=== PATIENT | male | born 1980 | race Caucasian/White ===

== ENCOUNTER 2018-10-13 23:07 | Emergency (ER) | payer OTHER, SELFPAY ==
[2018-10-13 23:15] VITALS: BP 167/112; PULSE 68; RESP 15; TEMP 36.9; O2SAT 100; BMI 40.3
--- NOTE | 2018-10-13 23:33 | ED_ITS ---
HPI - Abdominal Pain General Chief Complaint: Abdominal Pain Stated Complaint: pain in left side front abdomen Time Seen by Provider: 10/13/18 23:18 Source: patient Mode of arrival: ambulatory Limitations: no limitations History of Present Illness HPI narrative: 38-year-old male, nonsmoker with a history of kidney stones presents with sudden onset left flank pain that wraps around his left side. His symptoms started about 1-2 hours ago. He states there is sudden in onset are incredibly sharp and stabbing. He denies provocation or palliation and cannot find a position of comfort. This vaguely reminds him of a kidney stone he had 15 years ago. He had 1 episode of vomiting thought due to intense pain. He has had no fever or chills. He denies dysuria, frequency or urgency. MD complaint: flank pain Onset (ago): hour(s) Pain Consistency: now resolved Location: L flank Quality: stabbing Radiation: L flank Migration to: no migration Relieving factors: nothing Exacerbating factors: nothing Associated symptoms: nausea and vomiting Related Data Previous Rx's Medication Instructions Recorded hydrocodone-acetaminophen 1 tab PO Q4-6H PRN #10 tab 10/14/18 ketorolac 10 mg PO Q6H PRN #14 tab 10/14/18 ondansetron 4 mg PO TID-QID PRN #10 tab 10/14/18 tamsulosin [Flomax] 0.4 mg PO DAILY #10 cap 10/14/18 Allergies Allergy/AdvReac Type Severity Reaction Status Date / Time No Known Drug Allergies Allergy Verified 10/13/18 23:19 Review of Systems Constitutional Denies chills, Denies fever(s), Denies lethargy and Denies weakness Eyes Denies change in vision, Denies eye discharge, Denies irritation and Denies loss of vision ENT Ears, Nose, Mouth, and Throat: Denies change in voice, Denies neck pain and Denies sore throat Cardiovascular Denies chest pain, Denies irregular heart rhythm, Denies lightheadedness, Denies palpitations, Denies dyspnea, Denies dyspnea on exertion and Denies orthopnea Respiratory Denies cough, Denies dyspnea, Denies dyspnea on exertion and Denies wheezing Gastrointestinal Gastrointestinal: Denies abdominal pain, Denies change in bowel habits, Denies diarrhea, Denies nausea and Denies vomiting Genitourinary Denies hematuria, Reports flank pain, Denies urinary incontinence and Denies urinary urgency Musculoskeletal Denies neck pain Integumentary/Breasts Denies pruritus, Denies erythema, Denies rash and Denies wounds Neurologic Denies confusion, Denies loss of vision and Denies weakness Psychiatric Denies anxiety, Denies confusion, Denies depression, Denies homicidal ideation and Denies suicidal ideation Endocrine Denies palpitations Hematologic/Lymphatic Denies easy bruising Allergic/Immunologic Denies wheezing Exam Narrative Exam Narrative: GENERAL: 38-year-old male overweight, resting comfortably, in good spirits and in distress HEAD: Atraumatic. Normocephalic. No temporal or scalp tenderness. EYES: Pupils equal round and reactive. Extraocular motions intact. No scleral icterus. No injection or drainage. ENT: Nose without bleeding, purulent drainage or septal hematoma. Throat without erythema, tonsillar hypertrophy or exudate. Uvula midline. Airway patent. NECK: Trachea midline. No JVD or lymphadenopathy. Supple, nontender, no meningeal signs. CARDIOVASCULAR: Regular rate and rhythm without murmurs, gallops, or rubs. RESPIRATORY: Clear to auscultation. Breath sounds equal bilaterally. No wheezes , rales, or rhonchi. GASTROINTESTINAL: Abdomen soft, non-tender, nondistended. No hepato-splenomegaly , or palpable masses. No guarding. EXTREMITIES: No clubbing, cyanosis, or edema. No joint tenderness, effusion, or edema noted. BACK: Nontender without deformity or crepitance. No flank tenderness. NEURO: AOx3. SKIN: No rash or erythema. Initial Vital Signs Initial Vital Signs: Vital Signs Temperature 98.5 F 10/13/18 23:15 Pulse Rate 68 10/13/18 23:15 Respiratory Rate 15 10/13/18 23:15 Blood Pressure 167/112 H 10/13/18 23:15 Pulse Oximetry 100 10/13/18 23:15 Course Orders Ordered: ED Orders 10/13/18 23:35 Basic Metabolic Panel Stat Complete Blood Count AUTO DIFF Stat Discontinued Medications Sodium Chloride (Normal Saline 0.9%) 1,000 mls @ 1,000 mls/hr IV BOLUS ONE Stop: 10/14/18 00:27 Last Infusion: 10/14/18 01:41 Dose: 0 mls/hr Admin: 10/13/18 23:44 Dose: 1,000 mls/hr Ketorolac Tromethamine (Toradol) 15 mg IV NOW ONE Stop: 10/13/18 23:29 Last Admin: 10/13/18 23:44 Dose: 15 mg Ondansetron HCl (Zofran) 4 mg IV NOW ONE Stop: 10/13/18 23:29 Last Admin: 10/13/18 23:44 Dose: 4 mg Vital Signs - 8 hr 10/13/18 23:15 Temperature 98.5 F Pulse Rate 68 Respiratory Rate 15 Blood Pressure 167/112 H Pulse Oximetry 100 MDM - Abdominal Pain Lab Data Result diagrams: 10/13/18 23:35 10/13/18 23:35 Lab Results 10/13/18 10/13/18 Range/Units 23:35 23:35 WBC 9.7 (4.5-11.0) X10^3/uL RBC 5.27 (4.5-5.9) X10^6/uL Hgb 16.0 (13.5-17.5) g/dL Hct 47.7 (41-53) % MCV 90.6 (80-100) fL MCH 30.5 (26-34) PG MCHC 33.6 (30-36) % RDW 13.3 (11.6-14.8) % Plt Count 206 (150-400) X10^3/uL Neut % (Auto) 38.3 L (50-75) % Lymph % (Auto) 44.8 H (25-40) % Eddy % (Auto) 12.8 (3-14) % Eos % (Auto) 3.1 (2-4) % Baso % (Auto) 1.0 (0-2) % Neut # (Auto) 3700 (3352-9778) /uL Lymph # (Auto) 4300 (0771-5110) /uL Eddy # (Auto) 1200 H (0-900) /uL Eos # (Auto) 300 (0-450) /uL Baso # (Auto) 100 (0-100) /uL Sodium 142 (137-145) mmol/L Potassium 3.7 (3.4-5.1) mmol/L Chloride 102 (98-107) mmol/L Carbon Dioxide 25 (22-32) mmol/L BUN 18 (9-20) mg/dL Creatinine 1.10 (0.66-1.25) mg/dL Estimated GFR > 60.0 (>60) mL/min BUN/Creatinine Ratio 16.4 (6-22) Glucose 88 (70-100) mg/dL Calcium 9.2 (8.4-10.2) mg/dL Point of care testing: Urine Dip Bedside Urine Glucose Negative Bedside Urine Bilirubin - Negative Bedside Urine Ketone + 15 Urine Specific [place] 1.030 Bedside Urine Occult Blood ++ Bedside Urine pH 5.5 Bedside Urine Protein - Negative Bedside Urine Urobilinogen 1+ 2mg Bedside Urine Nitrite - Negative Bedside Urine Leukocytes - Negative Esterase MDM Narrative Medical decision making narrative: Multiple etiologies for patient's symptoms considered including: [Kidney stone, pyelonephritis, musculoskeletal injury, retroperitoneal hematoma, bowel obstruction, constipation, gas pain, versus other] Patient's symptoms improved or duration of stay with above-stated therapies. We did discuss whether not imaging would change the outcome and disposition and elect to hold CT scan or ultrasound until subsequent visits Findings and discharge diagnosis discussed with patient/family followed by verbalization of understanding Return precautions discussed with patient/family whom verbalize understanding. Discharge Plan Departure Patient Disposition: Home Clinical Impression: Kidney stone on left side Instructions: DI for Kidney Stones Activity Restrictions/Additional Instructions: *You have been diagnosed with [ left-sided ureterolithiasis ] *What to do: *Take medications as directed *Follow up with your primary care provider in 2-3 days, call for an appointment. Let them know you were seen in the Emergency Department and that we ask that you be seen in follow up *Return to ER if you should have any new, worsening or concerning symptoms , such as [increasing pain, persistent vomiting, fever over 101 F, shaking chills, other bothersome symptoms ] Prescriptions: New hydrocodone-acetaminophen 5-325 mg tablet 1 tab PO Q4-6H PRN (Reason: pain) Qty: 10 RF: 0 ketorolac 10 mg tablet 10 mg PO Q6H PRN (Reason: pain) Qty: 14 RF: 0 tamsulosin [Flomax] 0.4 mg capsule 0.4 mg PO DAILY Qty: 10 RF: 0 ondansetron 4 mg tablet,disintegrating 4 mg PO TID-QID PRN (Reason: nausea and vomiting) Qty: 10 RF: 0 Referrals: Kip Monroe MD [Non-Staff] -
[2018-10-13 23:44] LABS: Add Manual Diff / Slide Review NO; Basophils Absolute Auto 100 /uL (0-100); Eosinophils Absolute Auto 300 /uL (0-450); Eosinophils Percent Auto 3.1 % (2-4); Hematocrit 47.7 % (41-53); Lymphocytes Absolute Auto 4300 /uL (1100-4500); Lymphocytes Percent Auto 44.8 % (25-40); Mean Corpuscular HGB Conc 33.6 % (30-36); Mean Corpuscular Hemoglobin 30.5 PG (26-34); Mean Corpuscular Volume 90.6 fL (80-100); Monocytes Absolute Auto 1200 /uL (0-900); Monocytes Percent Auto 12.8 % (3-14); Neutrophils Absolute Auto 3700 /uL (1500-7000); Neutrophils Percent Auto 38.3 % (50-75); Platelet Count 206 X10^3/uL (150-400); Red Blood Cell Count 5.27 X10^6/uL (4.5-5.9); Red Cell Distribution Width 13.3 % (11.6-14.8); White Blood Cell Count 9.7 X10^3/uL (4.5-11.0)
[2018-10-13] MEDS: KETOROLAC 30 MG/ML VIAL 15 MG IV (23:44)
[2018-10-13] MEDS: SODIUM CHLORIDE 0.9% 1,000 ML 1000 ML IV (23:44)
[2018-10-13] MEDS: ONDANSETRON 4 MG/2 ML INJ IV (23:44)
[2018-10-13 23:53] LABS: BUN Creatinine Ratio 16.4 (6-22); Blood Urea Nitrogen 18 mg/dL (9-20); Calcium 9.2 mg/dL (8.4-10.2); Carbon Dioxide 25 mmol/L (22-32); Chloride 102 mmol/L (98-107); Estimated Glomerular Filt Rate > 60.0 mL/min (>60); Glucose 88 mg/dL (70-100); HEMOLYSIS < 15 (0-50); Potassium 3.7 mmol/L (3.4-5.1); Sodium 142 mmol/L (137-145)
[2018-10-14 01:53] VITALS: BP 151/99; PULSE 80; RESP 18
== END 2018-10-14 01:45 | disposition home or self-care (01) ==
PROVIDERS: Emergency Provider Emergency Medicine
DX: N20.0 Calculus of kidney (principal)
CPT/HCPCS: 36591; 80048; 81003; 85025; 96361; 96374; 96375; 99283; 99284; J1885; J2405

== ENCOUNTER → 2018-12-04 17:22 | Outpatient (CLI) | payer OTHER, SELFPAY ==
--- NOTE | 2018-12-04 17:23 | DI.RAD.S_ITS ---
PROCEDURE: XR CHEST 2V INDICATIONS: cough and shortness of breath TECHNIQUE: 2 views of the chest were acquired. COMPARISON: None. FINDINGS: Surgical changes and devices: None. Lungs and pleura: Lungs are clear. No pleural effusions or pneumothorax. Mediastinum: Mediastinal contours are normal. Heart size is normal. Bones and chest wall: No suspicious bony abnormalities. Soft tissues appear unremarkable. IMPRESSION: No acute cardiopulmonary disease. Dictated by: Nidia Rios M.D. on 12/04/2018 at 18:19 Approved by: Nidia Rios M.D. on 12/04/2018 at 18:19
== END ==
PROVIDERS: Visit Provider Physician Assistant
DX: R05 Cough (principal); R06.02 Shortness of breath
CPT/HCPCS: 71046

== ENCOUNTER → 2019-01-11 09:41 | Outpatient (CLI) | payer OTHER, SELFPAY ==
--- NOTE | 2019-01-11 09:43 | DI.US.S_ITS ---
PROCEDURE: US RENAL COMPLETE INDICATIONS: HISTORY KIDNEY STONES TECHNIQUE: Real-time scanning was performed of the kidneys and bladder, with image documentation. COMPARISON: [facility], CT, CT KUB, 01/06/2019, 20:29. FINDINGS: Kidneys: Kidneys are normal in size. Right kidney measures 11.0 cm long; left kidney measures 13.3 cm long. Right renal cortical thickness is 2.6 cm; left renal cortical thickness is 2.2 cm. Renal cortical echotexture is normal. There is a 5.3 mm stone in the right kidney. No left renal stone. There is mild left hydronephrosis. No suspicious solid mass lesions. Bladder: Pre-void bladder volume is 96 mL. Post-void residual is 0 mL. Pre-void images demonstrate no intraluminal masses or stones. On pre-void images, the right ureteral jet is noted with color Doppler interrogation. The left ureter jet is not visualized. (Of note, ureteral jets may not be detectable in up to 25% of cases due to insufficient differences in specific gravity between ureteral and bladder urine). Miscellaneous: No free pelvic fluid. IMPRESSION: 1. Mild left hydronephrosis. No left renal stones are identified on ultrasound. 2. A 5.3 mm stone in the right kidney. No right hydronephrosis. Dictated by: Nidia Rios M.D. on 01/11/2019 at 12:26 Approved by: Nidia Rios M.D. on 01/11/2019 at 12:30
== END ==
PROVIDERS: PCP Nurse Practitioner; Visit Provider Nurse Practitioner
DX: N20.0 Calculus of kidney (principal); N13.30 Unspecified hydronephrosis; Z87.442 Personal history of urinary calculi
CPT/HCPCS: 76770

== ENCOUNTER → 2019-03-18 17:53 | Outpatient (CLI) | payer OTHER, SELFPAY ==
[2019-03-18 19:08] LABS: Cholesterol 236 mg/dL (140-199); HDL Cholesterol 38 mg/dL (40-60); Triglycerides 479 mg/dL (35-150)
[2019-03-18 19:40] LABS: TSH w/ Reflex to FT4 2.02 uIU/mL (0.47-4.68); Uric Acid 8.6 mg/dL (3.5-8.5)
[2019-03-22 14:16] LABS: Parathyroid Hormone Int 39 pg/mL (14-64)
== END ==
PROVIDERS: PCP Nurse Practitioner; Visit Provider Specialist
DX: Z00.00 Encounter for general adult medical examination without abnormal findings (principal)
CPT/HCPCS: 36415; 80061; 82310; 83970; 84443; 84550

== ENCOUNTER → 2019-03-22 11:36 | Outpatient (CLI) | payer OTHER, SELFPAY ==
--- NOTE | 2019-03-22 | DI.RAD.S_ITS ---
PROCEDURE: XR KUB INDICATIONS: CALCULUS OF KIDNEY TECHNIQUE: One view of the abdomen acquired. COMPARISON: None. FINDINGS: Surgical changes and devices: None. Bowel: Bowel gas pattern is normal. Soft tissues: No suspicious abdominal calcifications. Visualized solid organ contours appear normal in size. Bones: No suspicious bony lesions. IMPRESSION: No discrete renal or ureteral calcification is seen. Dictated by: Magdy Osuna M.D. on 03/22/2019 at 13:23 Approved by: Magdy Osuna M.D. on 03/22/2019 at 13:24
== END ==
PROVIDERS: PCP Nurse Practitioner; Visit Provider Specialist
DX: N20.0 Calculus of kidney (principal)
CPT/HCPCS: 74018

== ENCOUNTER → 2019-05-25 21:20 | Outpatient (CLI) | payer OTHER, SELFPAY ==
--- NOTE | 2019-05-25 21:23 | DI.RAD.S_ITS ---
PROCEDURE: XR KUB INDICATIONS: KIDNEY STONES TECHNIQUE: One view of the abdomen acquired. COMPARISON: [facility], CT, CT KUB, 01/06/2019, 20:29. [facility], CR, XR KUB, 03/22/2019, 11:47. FINDINGS: Surgical changes and devices: None. Bowel: Bowel gas pattern is normal. Soft tissues: No suspicious abdominal calcifications. Visualized solid organ contours appear normal in size. Bones: No suspicious bony lesions. IMPRESSION: No radiographically apparent urolithiasis. The findings from CT dated 01/06/19 not seen on the current study. Dictated by: Liam Styles M.D. on 05/26/2019 at 9:17 Approved by: Liam Styles M.D. on 05/26/2019 at 9:18
== END ==
PROVIDERS: PCP Nurse Practitioner; Visit Provider Specialist
DX: N20.0 Calculus of kidney (principal)
CPT/HCPCS: 74018

== ENCOUNTER → 2019-06-29 09:17 | Outpatient (CLI) | payer OTHER, SELFPAY ==
[2019-06-29 10:48] LABS: Cholesterol 230 mg/dL (140-199); HDL Cholesterol 40 mg/dL (40-60); LDL Cholesterol Calculated 156 mg/dL (<100); Triglycerides 172 mg/dL (35-150)
[2019-06-29 10:53] LABS: Microalbumin Urine Random 1.5 mg/dL (0-1.6)
[2019-06-29 10:57] LABS: Creatinine Urine Random 266.2 mg/dL; Microalbumi Creatinin Ratio Ur 5.6 ug/mg CR (<30)
== END ==
PROVIDERS: PCP Nurse Practitioner; Visit Provider Nurse Practitioner
DX: I10 Essential (primary) hypertension (principal)
CPT/HCPCS: 36415; 80061; 82043; 82570

== ENCOUNTER → 2019-07-04 06:56 | Outpatient (CLI) | payer OTHER, SELFPAY ==
--- NOTE | 2019-07-04 06:57 | DI.ECHO.S_ITS ---
[facility]---------+ [facility] +---------+ : : [address] : : : : [id number] : : : : Phone: [phone]+ Echocardiogram Report + + :Name: GABRIEL BATISTA Study Date: 07/04/2019 Height: 72 in : :[facility] Weight: 288 lb : : Gender: Male BSA: 2.5 m2 : :: 1980 Age: 39 yrs BP: 126/80 mmHg: :Reason For Study: Hypertension : : Performed By: Mandi Black : :Referring: MADI WEBB : + + Interpretation Summary 1) Normal left ventricular size, thickness, and systolic function (EF 55-60%). 2) There are no obvious focal wall motion abnormalities noted but poor endocardial definition reduces the sensitivity for the detection of such. 3) Normal right ventricular size and function grossly. 4) No significant valvular abnormalities. 5) The right ventricular systolic pressure is estimated to be at least 24 mmHg based on an estimated right atrial pressure of 3 mm Hg. 6) No prior Echo available for comparison. Procedure: A two-dimensional transthoracic echocardiogram with color flow and Doppler was performed. The study quality was technically adequate. There is no prior echocardiogram noted for this patient. The patient was in normal sinus rhythm during the exam. Left Ventricle: The left ventricle is normal in size. There is normal left ventricular wall thickness. The ejection fraction is estimated to be 55-60%. Left ventricular systolic function is normal. There are no obvious focal wall motion abnormalities noted but poor endocardial definition reduces the sensitivity for the detection of such. Diastolic parameters suggest probable normal left ventricular diastolic function and normal filling pressures. Right Ventricle: The right ventricle grossly appears normal in size with probable normal systolic function. Atria: The left atrial size is normal. Right atrial size is normal. The interatrial septum is intact with no evidence for an atrial septal defect. Mitral Valve: The mitral valve is grossly normal. There is trace mitral regurgitation. Aortic Valve: The aortic valve is trileaflet. The aortic valve opens well. There is no aortic valve stenosis. No aortic regurgitation is present. Tricuspid Valve: The tricuspid valve leaflets are thin and pliable. There is mild tricuspid regurgitation. The right ventricular systolic pressure is estimated to be at least 24 mmHg based on an estimated right atrial pressure of 3 mm Hg. Pulmonic Valve: The pulmonic valve is normal in structure and function. There is a trace or physiologic amount of pulmonic regurgitation. Great Vessels: The aortic root is normal size. The dimensions of the ascending aorta are normal. The aortic arch is normal in size. The IVC is of normal diameter and collapses greater than 50% with a sniff. This suggests a low right atrial pressure of 3 mm Hg. Pericardium/ Pleura There is no pericardial effusion. There is no pleural effusion. MMode/2D Measurements & Calculations LVIDd: 5.7 cm LVOT diam: 3.5 cm LVIDs: 3.7 cm Ao root diam: 3.4 cm FS: 35.0 % Aortic Jxn: 3.1 cm EPSS: 0.76 cm asc Aorta Diam: 3.2 cm IVSd: 0.93 cm Ao Arch Diam (Prox Trans): 3.0 cm LVPWd: 0.98 cm LV lopez. diameter/BSA (cm/m^2): 2.3 LV sys. diameter/BSA (cm/m^2): 1.5 LA dimension: 4.1 cm RA long axis: 4.3 cm LA A2 area: 14.0 cm2 RA area: 17.1 cm2 LA A4 area: 21.0 cm2 RA vol: 58.4 ml LA length (vol): 5.0 cm RA : 23.5 ml/m2 LA vol: 49.7 ml RVDd major: 5.8 cm LA vol index: 20.0 ml/m2 RVD1 (basal): 3.6 cm RVD2 (mid): 2.7 cm Doppler Measurements & Calculations Ao V2 max: 122.7 cm/sec MV E max jagjit: 61.1 cm/sec Ao V2 mean: 87.1 cm/sec MV A max jagjit: 47.6 cm/sec Ao max P.0 mmHg MV E/A: 1.3 Ao mean P.5 mmHg Med Peak E' Jagjit: 6.3 cm/sec Ao V2 VTI: 26.6 cm E/E' med: 9.7 Lat Peak E' Jagjit: 10.1 cm/sec E/E' lat: 6.1 E/e' average: 7.9 MV dec time: 0.23 sec MV P1/2t: 68.6 msec TR max jagjit: 229.1 cm/sec MV P1/2t max jagjit: 60.8 cm/sec TR max P.0 mmHg MVA(P1/2t): 3.2 cm2 PA V2 max: 78.3 cm/sec PA V2 mean: 51.7 cm/sec PA mean P.3 mmHg PA Accel Time: 0.13 sec Reading Physician:05:51 PM
== END ==
PROVIDERS: PCP Nurse Practitioner; Visit Provider Nurse Practitioner
DX: I07.1 Rheumatic tricuspid insufficiency (principal); I10 Essential (primary) hypertension; E66.9 Obesity, unspecified
CPT/HCPCS: C8929

== ENCOUNTER → 2020-12-26 09:51 | Outpatient (CLI) | payer OTHER, SELFPAY ==
[2020-12-26 11:12] LABS: Add Manual Diff / Slide Review NO; Basophils Absolute Auto 0 /uL (0-100); Basophils Percent Auto 0.6 % (0-2); Eosinophils Absolute Auto 200 /uL (0-450); Eosinophils Percent Auto 2.1 % (2-4); Hematocrit 47.1 % (41-53); Hemoglobin 15.8 g/dL (13.5-17.5); Lymphocytes Absolute Auto 2900 /uL (1100-4500); Lymphocytes Percent Auto 40.9 % (25-40); Mean Corpuscular HGB Conc 33.6 % (30-36); Mean Corpuscular Volume 89.4 fL (80-100); Monocytes Absolute Auto 700 /uL (0-900); Monocytes Percent Auto 9.6 % (3-14); Neutrophils Absolute Auto 3400 /uL (1500-7000); Neutrophils Percent Auto 46.8 % (50-75); Platelet Count 188 X10^3/uL (150-400); Red Blood Cell Count 5.27 X10^6/uL (4.5-5.9); White Blood Cell Count 7.2 X10^3/uL (4.5-11.0)
[2020-12-26 11:31] LABS: Alanine Aminotransferase 76 IU/L (<50); Albumin 4.6 g/dL (3.5-5.0); Albumin Globulin Ratio 1.2 (1.0-2.8); Alkaline Phosphatase 63 U/L (38-126); Aspartate Aminotransferase 55 IU/L (17-59); BUN Creatinine Ratio 17.8 (6-22); Bilirubin Total 0.8 mg/dL (0.2-1.3); Blood Urea Nitrogen 13 mg/dL (9-20); Calcium 9.5 mg/dL (8.4-10.2); Carbon Dioxide 26 mmol/L (22-32); Chloride 102 mmol/L (98-107); Cholesterol 227 mg/dL (140-199); Estimated Glomerular Filt Rate > 60.0 mL/min (>60); Globulin 3.9 g/dL (1.7-4.1); Glucose 220 mg/dL (70-100); HDL Cholesterol 36 mg/dL (40-60); HEMOLYSIS < 15 (0-50); LDL Cholesterol Calculated 152 mg/dL (<100); Potassium 4.1 mmol/L (3.4-5.1); Sodium 139 mmol/L (137-145); Total Protein 8.5 g/dL (6.3-8.2); Triglycerides 195 mg/dL (35-150)
[2020-12-26 12:30] LABS: Creatinine Urine Random 172.1 mg/dL
[2020-12-26 12:37] LABS: Microalbumi Creatinin Ratio Ur 6.3 ug/mg CR (<30); Microalbumin Urine Random 1.1 mg/dL (0-1.6)
[2020-12-26 14:33] LABS: Free T3, Triiodothyronine Free 3.56 pg/mL (2.77-5.27); Free T4, Direct Thyroxine 1.08 ng/dL (0.78-2.19)
[2020-12-26 14:47] LABS: Thyroid Stimulating Hormone 1.59 uIU/mL (0.47-4.68)
[2020-12-26 14:59] LABS: Hemoglobin A1C% w Est Avg Glu 10.4 % (4.0-6.0)
== END ==
PROVIDERS: PCP Nurse Practitioner; Referring Provider Nurse Practitioner; Visit Provider Nurse Practitioner
DX: E78.1 Pure hyperglyceridemia (principal); I10 Essential (primary) hypertension; Z00.00 Encounter for general adult medical examination without abnormal findings; R73.01 Impaired fasting glucose
CPT/HCPCS: 36415; 80053; 80061; 82043; 82570; 83036; 84439; 84443; 84481; 85025

== ENCOUNTER → 2021-04-10 09:13 | Outpatient (CLI) | payer OTHER, SELFPAY ==
[2021-04-10 10:02] LABS: Hemoglobin A1C% w Est Avg Glu 6.5 % (4.0-6.0)
[2021-04-10 10:12] LABS: Alanine Aminotransferase 74 IU/L (<50); Albumin 4.5 g/dL (3.5-5.0); Albumin Globulin Ratio 1.2 (1.0-2.8); Alkaline Phosphatase 54 U/L (38-126); Aspartate Aminotransferase 57 IU/L (17-59); Bilirubin Total 0.5 mg/dL (0.2-1.3); Blood Urea Nitrogen 16 mg/dL (9-20); Calcium 10.1 mg/dL (8.4-10.2); Carbon Dioxide 28 mmol/L (22-32); Chloride 103 mmol/L (98-107); Cholesterol 226 mg/dL (140-199); Estimated Glomerular Filt Rate > 60.0 mL/min (>60); Globulin 3.8 g/dL (1.7-4.1); Glucose 141 mg/dL (70-100); HDL Cholesterol 41 mg/dL (40-60); HEMOLYSIS < 15 (0-50); LDL Cholesterol Calculated 141 mg/dL (<100); Potassium 3.9 mmol/L (3.4-5.1); Sodium 141 mmol/L (137-145); Total Protein 8.3 g/dL (6.3-8.2); Triglycerides 222 mg/dL (35-150)
== END ==
PROVIDERS: PCP Nurse Practitioner; Referring Provider Nurse Practitioner; Visit Provider Nurse Practitioner
DX: E78.1 Pure hyperglyceridemia (principal); I10 Essential (primary) hypertension
CPT/HCPCS: 36415; 80053; 80061; 83036

== ENCOUNTER → 2021-07-03 10:20 | Outpatient (CLI) | payer OTHER, SELFPAY ==
[2021-07-03 10:57] LABS: Hemoglobin A1C% w Est Avg Glu 7.1 % (4.0-6.0)
[2021-07-03 11:17] LABS: Alanine Aminotransferase 117 IU/L (<50); Albumin 4.4 g/dL (3.5-5.0); Albumin Globulin Ratio 1.2 (1.0-2.8); Alkaline Phosphatase 56 U/L (38-126); Aspartate Aminotransferase 90 IU/L (17-59); BUN Creatinine Ratio 16.1 (6-22); Bilirubin Total 0.7 mg/dL (0.2-1.3); Blood Urea Nitrogen 14 mg/dL (9-20); Calcium 9.6 mg/dL (8.4-10.2); Carbon Dioxide 30 mmol/L (22-32); Chloride 100 mmol/L (98-107); Cholesterol 169 mg/dL (140-199); Estimated Glomerular Filt Rate > 60.0 mL/min (>60); Globulin 3.6 g/dL (1.7-4.1); Glucose 163 mg/dL (70-100); HDL Cholesterol 38 mg/dL (40-60); HEMOLYSIS < 15 (0-50); LDL Cholesterol Calculated 96 mg/dL (<100); Potassium 3.9 mmol/L (3.4-5.1); Sodium 141 mmol/L (137-145); Triglycerides 177 mg/dL (35-150)
== END ==
PROVIDERS: PCP Nurse Practitioner; Referring Provider Nurse Practitioner; Visit Provider Nurse Practitioner
DX: E11.69 Type 2 diabetes mellitus with other specified complication (principal); E78.2 Mixed hyperlipidemia; I10 Essential (primary) hypertension; Z79.899 Other long term (current) drug therapy
CPT/HCPCS: 36415; 80053; 80061; 83036

== ENCOUNTER → 2021-07-10 09:49 | Outpatient (CLI) | payer OTHER, SELFPAY ==
--- NOTE | 2021-07-10 09:50 | DI.CT.S_ITS ---
PROCEDURE: CT KIDNEY URETER BLADDER (KUB) INDICATIONS: noncontrast, stone protocol TECHNIQUE: Axial sections were acquired from the lung bases to the pubic symphysis. Coronal and sagittal reformats were performed. For radiation dose reduction, the following was used: automated exposure control, adjustment of mA and/or kV according to patient size. COMPARISON: None. FINDINGS: Image quality: Excellent. Lung bases: Unremarkable. Heart: No significant findings. URINARY: Right Kidney: no stones or hydronephrosis. Right Ureter: No hydroureter. Left Kidney: 3 mm nonobstructing stone in midpole of left kidney is seen. No hydronephrosis. Left Ureter: No hydroureter. Bladder: Borderline bladder wall thickening is seen, no discrete bladder wall mass. No stones. ABDOMEN: Liver: There is hepatomegaly and hepatic steatosis, no discrete hepatic lesion is noted. Gallbladder: Multiple air containing stones are seen in dependent portion of gallbladder lumen. No gallbladder wall thickening or pericholecystic fluid. Biliary ducts: Unremarkable. Pancreas: Unremarkable. Spleen: Unremarkable. Adrenal Glands: Unremarkable. Stomach and Bowel: Stomach, small bowel loops, and colon are unremarkable. Appendix is visualized and is within normal limits. Sigmoid diverticulosis is seen, no bowel wall thickening or mesenteric fat stranding is seen. Peritoneum: No abnormal intraperitoneal fluid. No free air. Ventral Wall: No hernia. Abdominal Nodes: No enlarged retroperitoneal or mesenteric lymph nodes. Vessels: Aorta and inferior vena cava are normal in size. PELVIS: Pelvic Organs: Unremarkable. Pelvic Nodes: Unremarkable. Miscellaneous: No inguinal hernias are seen. Bones: Unremarkable. IMPRESSION: 1. Tiny 3 millimeter nonobstructing left renal calculus. No obstructing renal stone or hydronephrosis. Normal appearing bilateral ureters. Very mild bladder wall thickening, low-grade cystitis cannot be excluded. No discrete bladder wall mass. 2. Hepatomegaly and hepatic steatosis, no discrete hepatic lesion. 3. Cholelithiasis without evidence of acute cholecystitis. 4. No bowel obstruction or abnormal bowel wall thickening. Normal appendix. Sigmoid diverticulosis without evidence of acute diverticulitis. No free fluid or free air. Dictated by: Magdy Osuna M.D. on 07/10/2021 at 10:08 Approved by: Magdy Osuna M.D. on 07/10/2021 at 10:11
--- NOTE | 2021-07-10 11:08 | DI.RAD.S_ITS ---
PROCEDURE: XR KNEE RT 3V INDICATIONS: eval right knee s/p injury TECHNIQUE: 3 views of the knee were acquired. COMPARISON: None. FINDINGS: Bones: No fractures or dislocations. No suspicious bony lesions. Mild osteoarthritic changes are present. Soft tissues: Moderate joint effusion. No suspicious soft tissue calcifications. IMPRESSION: 1. No fracture or dislocation. 2. Mild osteoarthritic change. 3. Moderate knee joint effusion. Dictated by: Nidia Rios M.D. on 07/10/2021 at 12:02 Approved by: Nidia Rios M.D. on 07/10/2021 at 12:06
== END ==
PROVIDERS: PCP Nurse Practitioner; Referring Provider Registered Nurse Diabetes Educator; Visit Provider Nurse Practitioner
DX: R31.9 Hematuria, unspecified (principal); N20.0 Calculus of kidney; K76.0 Fatty (change of) liver, not elsewhere classified; K80.20 Calculus of gallbladder without cholecystitis without obstruction; K57.30 Diverticulosis of large intestine without perforation or abscess without bleeding; M25.561 Pain in right knee; M25.461 Effusion, right knee
CPT/HCPCS: 73562; 74176

== ENCOUNTER → 2021-09-19 08:16 | Outpatient (CLI) | payer OTHER, SELFPAY ==
[2021-09-19 08:50] LABS: Add Manual Diff / Slide Review NO; Basophils Absolute Auto 100 /uL (0-100); Basophils Percent Auto 0.7 % (0-2); Eosinophils Absolute Auto 300 /uL (0-450); Eosinophils Percent Auto 3.2 % (2-4); Hematocrit 44.4 % (41-53); Hemoglobin 15.3 g/dL (13.5-17.5); Lymphocytes Absolute Auto 3500 /uL (1100-4500); Lymphocytes Percent Auto 43.8 % (25-40); Mean Corpuscular HGB Conc 34.5 % (30-36); Mean Corpuscular Hemoglobin 30.5 PG (26-34); Mean Corpuscular Volume 88.5 fL (80-100); Monocytes Absolute Auto 800 /uL (0-900); Monocytes Percent Auto 9.4 % (3-14); Neutrophils Absolute Auto 3400 /uL (1500-7000); Neutrophils Percent Auto 42.9 % (50-75); Platelet Count 204 X10^3/uL (150-400); Red Blood Cell Count 5.02 X10^6/uL (4.5-5.9); Red Cell Distribution Width 12.5 % (11.6-14.8)
[2021-09-19 09:16] LABS: Hemoglobin A1C% w Est Avg Glu 9.9 % (4.0-6.0)
[2021-09-19 14:29] LABS: Alanine Aminotransferase 164 IU/L (<50); Albumin 4.4 g/dL (3.5-5.0); Alkaline Phosphatase 66 U/L (38-126); Aspartate Aminotransferase 121 IU/L (17-59); BUN Creatinine Ratio 16.3 (6-22); Bilirubin Total 0.8 mg/dL (0.2-1.3); Blood Urea Nitrogen 16 mg/dL (9-20); Calcium 9.7 mg/dL (8.4-10.2); Carbon Dioxide 30 mmol/L (22-32); Chloride 97 mmol/L (98-107); Estimated Glomerular Filt Rate > 60.0 mL/min (>60); Globulin 3.9 g/dL (1.7-4.1); Glucose 274 mg/dL (70-100); Potassium 3.9 mmol/L (3.4-5.1); Sodium 135 mmol/L (137-145); Total Protein 8.3 g/dL (6.3-8.2)
[2021-09-19 14:30] LABS: Albumin Globulin Ratio 1.1 (1.0-2.8); Cholesterol 168 mg/dL (140-199); HDL Cholesterol 28 mg/dL (40-60); HEMOLYSIS < 15 (0-50); LDL Cholesterol Calculated 100 mg/dL (<100); Triglycerides 202 mg/dL (35-150)
== END ==
PROVIDERS: Registered Nurse Diabetes Educator; PCP Nurse Practitioner; Referring Provider Nurse Practitioner; Visit Provider Nurse Practitioner
DX: E11.69 Type 2 diabetes mellitus with other specified complication (principal); E78.1 Pure hyperglyceridemia; E78.2 Mixed hyperlipidemia; I10 Essential (primary) hypertension; Z79.899 Other long term (current) drug therapy; R31.9 Hematuria, unspecified
CPT/HCPCS: 36415; 80053; 80061; 83036; 85025

== ENCOUNTER → 2021-09-21 12:06 | Outpatient (CLI) | payer OTHER, SELFPAY ==
[2021-09-21 15:28] LABS: Glucose 242 mg/dL (70-100)
[2021-09-21 15:30] LABS: Hemoglobin A1C% w Est Avg Glu 9.7 % (4.0-6.0)
== END ==
PROVIDERS: PCP Nurse Practitioner; Referring Provider Nurse Practitioner; Visit Provider Nurse Practitioner
DX: R73.01 Impaired fasting glucose (principal); E78.1 Pure hyperglyceridemia
CPT/HCPCS: 36415; 82947; 83036

== ENCOUNTER → 2022-04-03 09:11 | Outpatient (CLI) | payer OTHER, SELFPAY ==
[2022-04-03 10:26] LABS: Hemoglobin A1C% w Est Avg Glu 10.5 % (4.0-6.0)
[2022-04-03 10:54] LABS: Alanine Aminotransferase 116 IU/L (<50); Albumin 4.5 g/dL (3.5-5.0); Albumin Globulin Ratio 1.3 (1.0-2.8); Alkaline Phosphatase 59 U/L (38-126); Aspartate Aminotransferase 78 IU/L (17-59); BUN Creatinine Ratio 17.5 (6-22); Bilirubin Total 0.7 mg/dL (0.2-1.3); Blood Urea Nitrogen 14 mg/dL (9-20); Calcium 9.1 mg/dL (8.4-10.2); Carbon Dioxide 25 mmol/L (22-32); Chloride 99 mmol/L (98-107); Cholesterol 158 mg/dL (140-199); Estimated Glomerular Filt Rate > 60 mL/min (>60); Globulin 3.5 g/dL (1.7-4.1); Glucose 259 mg/dL (70-100); HDL Cholesterol 32 mg/dL (40-60); HEMOLYSIS < 15 (0-50); LDL Cholesterol Calculated 84 mg/dL (<100); Potassium 4.1 mmol/L (3.4-5.1); Sodium 137 mmol/L (137-145); Triglycerides 210 mg/dL (35-150)
== END ==
PROVIDERS: PCP Nurse Practitioner; Referring Provider Nurse Practitioner; Visit Provider Nurse Practitioner
DX: E11.69 Type 2 diabetes mellitus with other specified complication (principal); E78.2 Mixed hyperlipidemia; I10 Essential (primary) hypertension
CPT/HCPCS: 36415; 80053; 80061; 83036

== ENCOUNTER → 2022-06-16 07:58 | Outpatient (CLI) | payer OTHER, SELFPAY ==
--- NOTE | 2022-06-16 07:59 | DI.ECHO.S_ITS ---
[facility]---------+ [facility] +---------+ : : [address] : : : : [id number] : : : : Phone: [phone]+ Echocardiogram Report + + :Name: GABRIEL BATISTA Study Date: 06/16/2022 Height: 72 in : :[facility] ReadingLocation: Weight: 255 lb : : Gender: Male BSA: 2.4 m2 : :: 1980 Age: 42 yrs BP: 147/89 mmHg: :Reason For Study: Hypertension : :Ordering Physician: TRACEY, : :MADI Performed By: Kevin Woodward : :Referring: MADI WEBB : + + Interpretation Summary The patient was in normal sinus rhythm during the exam. Hypertensive during exam The left ventricle is normal in size. There is mild concentric left ventricular hypertrophy. The ejection fraction is estimated to be 55-60%. Diastolic parameters suggest probable normal left ventricular diastolic function and normal filling pressures. There is mild tricuspid regurgitation. The right ventricular systolic pressure is estimated to be at least 26 mmHg based on an estimated right atrial pressure of 3 mm Hg. Compared to prior study on 07/04/2019, mild TR otherwise unchanged. Procedure: A two-dimensional transthoracic echocardiogram with color flow and Doppler was performed. The study quality was technically adequate. Comparison is made with the echocardiogram of 07/04/2019. The patient was in normal sinus rhythm during the exam. Hypertensive during exam. Left Ventricle: The left ventricle is normal in size. There is mild concentric left ventricular hypertrophy. Left ventricular systolic function is normal. The ejection fraction is estimated to be 55-60%. There are no focal wall motion abnormalities. Diastolic parameters suggest probable normal left ventricular diastolic function and normal filling pressures. Right Ventricle: The right ventricle is normal in size and function. Atria: Both atria are normal in size. The interatrial septum grossly appears intact with no obvious evidence for an atrial septal defect. Mitral Valve: The mitral valve is normal in structure and function. There is no mitral regurgitation. Aortic Valve: The aortic valve is normal in structure and function. No aortic regurgitation is present. Tricuspid Valve: The tricuspid valve is normal in structure and function. There is mild tricuspid regurgitation. The right ventricular systolic pressure is estimated to be at least 26 mmHg based on an estimated right atrial pressure of 3 mm Hg. Pulmonic Valve: The pulmonic valve is normal in structure and function. There is no pulmonic valvular regurgitation. Great Vessels: The aortic root is normal size. The dimensions of the ascending aorta are normal. The IVC is of normal diameter and collapses greater than 50% with a sniff. This suggests a low right atrial pressure of 3 mm Hg. Pericardium/ Pleura There is no pericardial effusion. There is no pleural effusion. MMode/2D Measurements & Calculations LVIDd: 5.0 cm LVOT diam: 2.3 cm LVIDs: 3.2 cm Ao root diam: 3.1 cm FS: 36.0 % asc Aorta Diam: 3.1 cm IVSd: 1.2 cm LVPWd: 1.1 cm LV lopez. diameter/BSA (cm/m^2): 2.1 LV sys. diameter/BSA (cm/m^2): 1.4 LA dimension: 3.8 cm RA long axis: 4.3 cm LA A2 area: 14.3 cm2 LA A4 area: 20.1 cm2 LA length (vol): 4.6 cm LA vol: 52.8 ml LA vol index: 22.4 ml/m2 TAPSE_phl: 1.9 cm Doppler Measurements & Calculations Ao V2 max: 123.0 cm/sec LVOT Max Jagjit: 106.0 cm/sec Ao V2 mean: 95.8 cm/sec LV V1 max P.5 mmHg Ao max P.0 mmHg LV V1 VTI: 22.0 cm Ao mean P.0 mmHg ERICKSON(I,D): 3.5 cm2 Ao V2 VTI: 26.1 cm ERICKSON(V,D): 3.6 cm2 sev ratio: 0.84 ERICKSON indexed to BSA (cm^2/m^2): 1.5 MV E max jagjit: 77.6 cm/sec TR max jagjit: 238.0 cm/sec MV A max jagjit: 56.1 cm/sec TR max P.7 mmHg MV E/A: 1.4 Med Peak E' Jagjit: 7.7 cm/sec E/E' med: 10.0 Lat Peak E' Jagjit: 12.1 cm/sec E/E' lat: 6.4 E/e' average: 8.2 MV dec time: 0.17 sec SV(LVOT): 91.4 ml AV VR_phl: 0.86 ERICKSON(VTI)/BSA_phl: 1.5 MV P1/2t-pr_phl: 50.0 msec Reading Physician:HIRA
[2022-06-16 09:37] LABS: Creatinine Urine Random 148.4 mg/dL
[2022-06-16 09:41] LABS: Add Manual Diff / Slide Review NO; Basophils Absolute Auto 100 /uL (0-100); Basophils Percent Auto 0.6 % (0-2); Eosinophils Absolute Auto 400 /uL (0-450); Eosinophils Percent Auto 4.8 % (2-4); Hematocrit 43.8 % (41-53); Lymphocytes Absolute Auto 3400 /uL (1100-4500); Lymphocytes Percent Auto 39.9 % (25-40); Mean Corpuscular HGB Conc 34.2 % (30-36); Mean Corpuscular Volume 90.8 fL (80-100); Monocytes Absolute Auto 900 /uL (0-900); Monocytes Percent Auto 10.8 % (3-14); Neutrophils Absolute Auto 3700 /uL (1500-7000); Neutrophils Percent Auto 43.9 % (50-75); Platelet Count 194 X10^3/uL (150-400); Red Blood Cell Count 4.82 X10^6/uL (4.5-5.9); Red Cell Distribution Width 12.8 % (11.6-14.8); White Blood Cell Count 8.5 X10^3/uL (4.5-11.0)
[2022-06-16 09:42] LABS: Microalbumi Creatinin Ratio Ur 5.3 ug/mg CR (<30); Microalbumin Urine Random 0.8 mg/dL (0-1.6)
[2022-06-16 10:01] LABS: Alanine Aminotransferase 117 IU/L (<50); Albumin 4.5 g/dL (3.5-5.0); Albumin Globulin Ratio 1.1 (1.0-2.8); Alkaline Phosphatase 51 U/L (38-126); Aspartate Aminotransferase 70 IU/L (17-59); BUN Creatinine Ratio 17.3 (6-22); Bilirubin Total 0.6 mg/dL (0.2-1.3); Blood Urea Nitrogen 13 mg/dL (9-20); Calcium 9.3 mg/dL (8.4-10.2); Carbon Dioxide 25 mmol/L (22-32); Chloride 101 mmol/L (98-107); Cholesterol 152 mg/dL (140-199); Estimated Glomerular Filt Rate > 60 mL/min (>60); Glucose 158 mg/dL (70-100); HDL Cholesterol 38 mg/dL (40-60); HEMOLYSIS < 15 (0-50); LDL Cholesterol Calculated 91 mg/dL (<100); Potassium 3.7 mmol/L (3.4-5.1); Sodium 139 mmol/L (137-145); Total Protein 8.5 g/dL (6.3-8.2); Triglycerides 116 mg/dL (35-150)
[2022-06-16 18:29] LABS: Hep C Virus Ab w/Reflex Quant NEGATIVE s/c (NEGATIVE)
[2022-06-16 18:56] LABS: Hemoglobin A1C% w Est Avg Glu 7.1 % (4.0-6.0)
== END ==
PROVIDERS: PCP Nurse Practitioner; Referring Provider Nurse Practitioner; Visit Provider Nurse Practitioner
DX: Z00.00 Encounter for general adult medical examination without abnormal findings (principal); I07.1 Rheumatic tricuspid insufficiency; I10 Essential (primary) hypertension; E11.69 Type 2 diabetes mellitus with other specified complication; E78.1 Pure hyperglyceridemia; E78.2 Mixed hyperlipidemia
CPT/HCPCS: 36415; 80053; 80061; 82043; 82570; 83036; 84439; 84443; 84481; 85025; 86803; 93005; 93306

== ENCOUNTER → 2022-09-11 12:32 | Outpatient (CLI) | payer SELFPAY ==
[2022-09-11 14:13] LABS: Alanine Aminotransferase 166 IU/L (<50); Albumin 4.4 g/dL (3.5-5.0); Alkaline Phosphatase 66 U/L (38-126); Aspartate Aminotransferase 95 IU/L (17-59); BUN Creatinine Ratio 15.1 (6-22); Bilirubin Total 0.6 mg/dL (0.2-1.3); Bilirubin Unconjugated 0.3 mg/dL (0.0-1.1); Blood Urea Nitrogen 11 mg/dL (9-20); Calcium 8.9 mg/dL (8.4-10.2); Carbon Dioxide 25 mmol/L (22-32); Chloride 102 mmol/L (98-107); Cholesterol 236 mg/dL (140-199); Estimated Glomerular Filt Rate > 60 mL/min (>60); Globulin 4.2 g/dL (1.7-4.1); Glucose 157 mg/dL (70-100); HDL Cholesterol 38 mg/dL (40-60); HEMOLYSIS < 15 (0-50); LDL Cholesterol Calculated 168 mg/dL (<100); Sodium 139 mmol/L (137-145); Total Protein 8.6 g/dL (6.3-8.2); Triglycerides 148 mg/dL (35-150)
== END ==
PROVIDERS: PCP Nurse Practitioner; Referring Provider Nurse Practitioner; Visit Provider Nurse Practitioner
DX: E11.69 Type 2 diabetes mellitus with other specified complication (principal); E78.2 Mixed hyperlipidemia; I10 Essential (primary) hypertension; R73.09 Other abnormal glucose; R79.89 Other specified abnormal findings of blood chemistry
CPT/HCPCS: 36415; 80053; 80061; 80076; 83036

== ENCOUNTER → 2022-11-25 11:07 | Outpatient (CLI) | payer OTHER, SELFPAY ==
[2022-11-25 12:16] LABS: HEMOLYSIS < 15 (0-50); Iron 110 ug/dL (49-181)
[2022-11-25 12:26] LABS: Percent Iron Saturation 32 % (20-50); Total Iron Binding Capacity 349 ug/dL (261-462); Transferrin 261 mg/dL (206-381)
[2022-11-25 12:45] LABS: Hepatitis B Surface Antigen NEGATIVE s/c (NEGATIVE)
[2022-11-25 12:47] LABS: Thyroid Stimulating Hormone 1.47 uIU/mL (0.47-4.68)
[2022-11-26 07:10] LABS: Hepatitis B Core Antibody Negative (Negative)
[2022-11-26 07:50] LABS: Alpha 1 Anti Trypsin 142 mg/dL (101-187); Ceruloplasmin 19.7 mg/dL (16.0-31.0)
[2022-11-26 21:13] LABS: Tissue Transglutaminase IgA <2 U/mL (0-3); Tissue Transglutaminase IgG 4 U/mL (0-5)
[2022-11-28 00:08] LABS: Hepatitis B Surf Ab Qualitativ Non Reactive (.)
[2022-11-28 18:05] LABS: Smooth Muscle Antibody 11 Units (0-19)
[2022-12-03 16:06] LABS: ANA Screen, IFA Positive (.); Speckled Pattern >1:1280 (.)
== END ==
PROVIDERS: PCP Nurse Practitioner; Referring Provider Internal Medicine Gastroenterology; Visit Provider Internal Medicine Gastroenterology
DX: K76.0 Fatty (change of) liver, not elsewhere classified (principal); R79.89 Other specified abnormal findings of blood chemistry
CPT/HCPCS: 36415; 82103; 82390; 83516; 83540; 83550; 84443; 86038; 86376; 86704; 86706; 87340

== ENCOUNTER → 2023-02-20 07:40 | Outpatient (CLI) | payer OTHER, SELFPAY ==
[2023-02-20 08:38] LABS: Albumin Globulin Ratio 1.3 (1.0-2.8); BUN Creatinine Ratio 19.2 (6-22); Blood Urea Nitrogen 20 mg/dL (9-20); Calcium 9.8 mg/dL (8.4-10.2); Carbon Dioxide 26 mmol/L (22-32); Chloride 99 mmol/L (98-107); Cholesterol 171 mg/dL (140-199); Estimated Glomerular Filt Rate > 60 mL/min (>60); Globulin 3.8 g/dL (1.7-4.1); Glucose 181 mg/dL (70-100); HDL Cholesterol 36 mg/dL (40-60); HEMOLYSIS < 15 (0-50); LDL Cholesterol Calculated 89 mg/dL (<100); Sodium 137 mmol/L (137-145); Total Protein 8.8 g/dL (6.3-8.2); Triglycerides 229 mg/dL (35-150)
[2023-02-20 08:54] LABS: Free T4, Direct Thyroxine 0.95 ng/dL (0.78-2.19)
[2023-02-20 09:45] LABS: Alanine Aminotransferase 41 IU/L (<50); Alkaline Phosphatase 75 U/L (38-126); Aspartate Aminotransferase 30 IU/L (17-59); Bilirubin Total 0.7 mg/dL (0.2-1.3)
[2023-02-21 03:36] LABS: x Labcorp Estim. Avg Glu (eAG) 126 mg/dL (.)
== END ==
PROVIDERS: PCP Nurse Practitioner; Referring Provider Nurse Practitioner; Visit Provider Nurse Practitioner
DX: E11.69 Type 2 diabetes mellitus with other specified complication (principal); E11.9 Type 2 diabetes mellitus without complications; E78.2 Mixed hyperlipidemia; I10 Essential (primary) hypertension; K76.0 Fatty (change of) liver, not elsewhere classified; R79.89 Other specified abnormal findings of blood chemistry
CPT/HCPCS: 36415; 80053; 80061; 82043; 82570; 83036; 84439; 84443; 84481

== ENCOUNTER → 2023-02-24 14:15 | Outpatient (CLI) | payer OTHER, SELFPAY ==
[2023-02-24 15:10] LABS: Add Manual Diff / Slide Review NO; Basophils Absolute Auto 100 /uL (0-100); Basophils Percent Auto 0.7 % (0-2); Eosinophils Absolute Auto 300 /uL (0-450); Eosinophils Percent Auto 3.3 % (2-4); Hematocrit 45.6 % (41-53); Hemoglobin 16.1 g/dL (13.5-17.5); Lymphocytes Absolute Auto 2800 /uL (1100-4500); Lymphocytes Percent Auto 33.4 % (25-40); Mean Corpuscular HGB Conc 35.3 % (30-36); Mean Corpuscular Hemoglobin 31.2 PG (26-34); Mean Corpuscular Volume 88.4 fL (80-100); Monocytes Absolute Auto 1100 /uL (0-900); Monocytes Percent Auto 12.9 % (3-14); Neutrophils Absolute Auto 4100 /uL (1500-7000); Neutrophils Percent Auto 49.7 % (50-75); Platelet Count 173 X10^3/uL (150-400); Red Blood Cell Count 5.16 X10^6/uL (4.5-5.9); Red Cell Distribution Width 12.8 % (11.6-14.8); White Blood Cell Count 8.3 X10^3/uL (4.5-11.0)
[2023-02-24 15:34] LABS: Appearance Urine UA CLEAR; Bilirubin Urine UA NEGATIVE (NEGATIVE); Color Urine UA YELLOW; Glucose Urine UA NEGATIVE (Negative); Ketones Urine UA NEGATIVE (NEGATIVE); Leukocyte Esterase Urine UA NEGATIVE (NEGATIVE); Nitrite Urine UA NEGATIVE (Negative); Occult Blood Urine UA NEGATIVE (Negative); Protein Urine UA NEGATIVE (Negative); Specific Gravity Urine UA 1.025 (1.000-1.035); pH Urine UA 5.5 (4.5-8.0)
[2023-02-24 15:41] LABS: Bacteria Urine None Seen; Culture Indicated Urine Cult Not Indicated; RBC Urine 0-1/HPF (0-5/HPF); Squamous Epithelial Cell Urine 1-5 /HPF (0-5/HPF); WBC Urine 0-1/HPF (0-5/HPF)
[2023-02-25 03:15] LABS: Labcorp Hemoglobin (Hb) A1c 6.1 % (4.8-5.6)
[2023-02-25 03:45] LABS: Complement C3 132 mg/dL (82-167); IGA 950 mg/dL (90-386); IGG 1541 mg/dL (603-1613); IGM 66 mg/dL (20-172)
[2023-02-26 13:15] LABS: Anti Mitochondrial ABY IGG <20.0 Units (0.0-20.0)
[2023-02-28 01:54] LABS: Complement Total CH50 > 60 U/mL (>41)
[2023-05-19 12:32] LABS: Miscellaneous to Univ of WA SEESCANNED REPORT
[2023-05-28 08:09] LABS: Miscellaneous to Univ of WA SCANNED
== END ==
PROVIDERS: PCP Nurse Practitioner; Referring Provider Internal Medicine Rheumatology; Visit Provider Internal Medicine Rheumatology
DX: R76.0 Raised antibody titer (principal); K76.0 Fatty (change of) liver, not elsewhere classified; E11.9 Type 2 diabetes mellitus without complications
CPT/HCPCS: 36415; 81001; 82784; 83036; 83516; 83520; 85025; 86036; 86038; 86160; 86162

== ENCOUNTER → 2023-07-15 08:24 | Outpatient (CLI) | payer OTHER, SELFPAY ==
[2023-07-15 10:03] LABS: Hemoglobin A1C% w Est Avg Glu 6.5 % (4.0-6.0)
[2023-07-15 10:22] LABS: Alanine Aminotransferase 30 IU/L (<50); Albumin 4.6 g/dL (3.5-5.0); Albumin Globulin Ratio 1.2 (1.0-2.8); Alkaline Phosphatase 62 U/L (38-126); Aspartate Aminotransferase 28 IU/L (17-59); BUN Creatinine Ratio 22.2 (6-22); Bilirubin Total 0.7 mg/dL (0.2-1.3); Blood Urea Nitrogen 18 mg/dL (9-20); Calcium 9.4 mg/dL (8.4-10.2); Carbon Dioxide 22 mmol/L (22-32); Chloride 104 mmol/L (98-107); Cholesterol 152 mg/dL (140-199); Estimated Glomerular Filt Rate > 60 mL/min (>60); Globulin 3.8 g/dL (1.7-4.1); Glucose 159 mg/dL (70-100); HDL Cholesterol 29 mg/dL (40-60); HEMOLYSIS 19 (0-50); LDL Cholesterol Calculated 80 mg/dL (<100); Potassium 3.9 mmol/L (3.4-5.1); Sodium 138 mmol/L (137-145); Total Protein 8.4 g/dL (6.3-8.2); Triglycerides 215 mg/dL (35-150)
[2023-07-16 16:17] LABS: HIV 1 & 2 Ab/Ag 4th Gen Combo NEGATIVE (NEGATIVE)
== END ==
PROVIDERS: PCP Nurse Practitioner; Referring Provider Nurse Practitioner; Visit Provider Nurse Practitioner
DX: R73.09 Other abnormal glucose (principal); E11.69 Type 2 diabetes mellitus with other specified complication; E78.2 Mixed hyperlipidemia; E78.1 Pure hyperglyceridemia; I10 Essential (primary) hypertension
CPT/HCPCS: 36415; 80053; 80061; 83036; 87389

== ENCOUNTER → 2023-10-21 12:32 | Outpatient (CLI) | payer OTHER, SELFPAY ==
[2023-10-21 13:14] LABS: Hemoglobin A1C% w Est Avg Glu 8.5 % (4.0-6.0)
[2023-10-21 13:27] LABS: Alanine Aminotransferase 44 IU/L (<50); Albumin 4.9 g/dL (3.5-5.0); Albumin Globulin Ratio 1.2 (1.0-2.8); Alkaline Phosphatase 65 U/L (38-126); Aspartate Aminotransferase 32 IU/L (17-59); Blood Urea Nitrogen 16 mg/dL (9-20); Calcium 10.3 mg/dL (8.4-10.2); Carbon Dioxide 26 mmol/L (22-32); Chloride 101 mmol/L (98-107); Estimated Glomerular Filt Rate > 60 mL/min (>60); Globulin 4.1 g/dL (1.7-4.1); Glucose 219 mg/dL (70-100); HEMOLYSIS < 15 (0-50); Potassium 4.7 mmol/L (3.4-5.1); Sodium 138 mmol/L (137-145)
== END ==
PROVIDERS: PCP Nurse Practitioner; Referring Provider Nurse Practitioner; Visit Provider Nurse Practitioner
DX: Z79.899 Other long term (current) drug therapy (principal)
CPT/HCPCS: 36415; 80053; 83036

== ENCOUNTER 2025-06-10 09:14 | Emergency (ER) | payer BC, SELFPAY ==
[2025-06-10 09:15] VITALS: BP 178/93; PULSE 64; RESP 14; TEMP 36.4; O2SAT 98; BMI 32.8
[2025-06-10 09:19] VITALS: BP 178/93; PULSE 67; O2SAT 97
--- NOTE | 2025-06-10 09:57 | ED.ABDPAIN ---
HPI - Abdominal Pain General Chief Complaint: Abdominal Pain Stated Complaint: Poss kidney stones, pain intense (4am) Time Seen by Provider: 06/10/25 09:44 Source: patient Mode of arrival: Ambulatory History of Present Illness HPI narrative: 45-year-old gentleman history of kidney stones hypertension since with right flank pain radiating to right lower quadrant morning along with multiple bouts of nonbilious nonbloody nausea vomiting feels reminiscent of possible kidney stones that he has had in the past. No difficulty urinating and no blood in the urine. Patient denies chest pain shortness breath cough fever chills body aches. Last bowel movement earlier today and was normal. Other than what is stated 14 point review of system is negative. Related Data Previous Rx's ?Medication ?Instructions ?Recorded glucometer #1 12/28/20 lancing device #1 ea 12/28/20 glucometer test strips #100 ea 04/08/22 lancettes #100 ea 04/08/22 amlodipine 5 mg tablet 5 mg PO DAILY #90 tabs 10/22/23 lisinopril 40 mg tablet 40 mg PO DAILY #90 tabs 10/22/23 omega-3 acid ethyl esters 1 gram 1 cap PO BID #180 caps 10/22/23 capsule (Lovaza) simvastatin 10 mg tablet 10 mg PO BEDTIME #90 tabs 10/22/23 amoxicillin 875 mg-potassium 1 tab PO BID #20 tabs 04/05/24 clavulanate 125 mg tablet hydrocodone 5 mg-acetaminophen 325 1 tab PO Q4-6H PRN pain #20 tabs 06/10/25 mg tablet nitrofurantoin 100 mg PO Q12H 5 days #10 caps 06/10/25 monohydrate/macrocrystals 100 mg capsule (Macrobid) tamsulosin 0.4 mg capsule (Flomax) 0.4 mg PO DAILY #30 caps 06/10/25 Allergies Allergy/AdvReac Type Severity Reaction Status Date / Time metformin AdvReac Mild IR Verified 06/10/25 09:20 preparation caused diarrhea, stomach pain Review of Systems Review of Systems ROS Unobtainable: All systems reviewed & are unremarkable except as noted in HPI and below Patient History Medical History Elevated total protein Autoimmune hepatitis SUSAN positive Elevated liver function tests Hepatic steatosis Diabetes Neuropathy of left foot Non-insulin dependent diabetes mellitus without complication Elevated hemoglobin A1c measurement Mixed hyperlipidemia due to type 2 diabetes mellitus Elevated fasting blood sugar Smoking Status: Unknown if ever smoked alcohol intake frequency: a few times a month Exam Narrative Exam Narrative: GENERAL: [45] year old patient appears stated age. Well-developed patient, in mild distress. HEAD: Atraumatic. Normocephalic. EYES: Pupils equal round and reactive. Extraocular motions intact. No scleral icterus. No injection or drainage. ENT: Nose without bleeding, purulent drainage. Throat without erythema, tonsillar hypertrophy or exudate. Airway patent. NECK: Trachea midline. Non tender CARDIOVASCULAR: Regular rate and rhythm without murmurs, gallops, or rubs. RESPIRATORY: Clear to auscultation. Breath sounds equal bilaterally. No wheezes, rales, or rhonchi. GASTROINTESTINAL: Abdomen soft, non-tender, nondistended. EXTREMITIES: No edema or joint tenderness. BACK: Nontender without deformity or crepitance. No flank tenderness. NEURO: AOx3. SKIN: No rash or erythema of visible areas Initial Vital Signs Initial Vital Signs: Vital Signs Temperature 97.6 F 06/10/25 09:15 Pulse Rate 64 06/10/25 09:15 Respiratory Rate 14 06/10/25 09:15 Blood Pressure 178/93 H 06/10/25 09:15 Pulse Oximetry 98 06/10/25 09:15 Oxygen Delivery Method Room Air 06/10/25 09:15 Course Orders Ordered: ED Orders 06/10/25 09:56 CT abdomen pelvis w con Stat Complete Blood Count AUTO DIFF Stat Comprehensive Metabolic Panel Stat Lipase Stat Vital Signs Vital signs: Vital Signs - 8 hr 06/10/25 09:15 Temperature 97.6 F Pulse Rate 64 Respiratory Rate 14 Blood Pressure 178/93 H Pulse Oximetry 98 Oxygen Delivery Method Room Air MDM - Abdominal Pain Imaging Data CT scan - abdomen/pelvis: Radiologist's Impression: [address] [address] [address] Scan Report Signed Patient: Lambert Esteban MR#: [id number] : 1980 Acct:[id number] Age/Sex: 45 / M Date of Service: 06/10/25 Loc: ED Accession Number: [id number] Procedure: CT abdomen pelvis w con Ordering Provider: Jairo Meek D.O. PROCEDURE: CT ABDOMEN PELVIS W CON INDICATIONS: abd pain TECHNIQUE: After the administration of intravenous contrast, axial sections acquired from the lung bases to the pubic symphysis. Coronal and sagittal reformats were performed. For radiation dose reduction, the following was used: automated exposure control, adjustment of mA and/or kV according to patient size. COMPARISON: [facility], CT, CT KIDNEY URETER BLADDER (KUB), 07/10/2021, 10:00. FINDINGS: Image quality: Diagnostic. Lower Chest: No significant findings. ABDOMEN: Liver: No solid mass. Diffuse fatty liver infiltration is noted. Gallbladder: No radiopaque gallstones or wall thickening. Biliary ducts: No biliary dilation. Pancreas: No ductal dilation. Spleen: Size is within normal limits. Adrenal Glands: No adrenal nodules. Kidneys and Ureters: There is an obstructing stone seen within the distal right ureter, as on series 2, image 145 and on series 3, image 68, measuring 4 mm. There is associated right-sided hydroureter and hydronephrosis with perinephric fat stranding. There is a delayed nephrogram seen on the right. On the right, no nonobstructing kidney stones are seen. On the left, nonobstructing kidney stones are seen, measuring up to 6 mm and 450 Hounsfield units. No left-sided hydronephrosis is seen. The kidneys demonstrate normal size. Stomach and Bowel: Normal colonic caliber, without significant wall thickening. Colonic diverticulosis is seen, without findings of active diverticulitis. No dilated loops of small bowel are seen. A normal appendix is noted. Peritoneum: No abnormal intraperitoneal fluid. No free air. Ventral Wall: No significant ventral hernia. Abdominal Nodes: No retroperitoneal or mesenteric adenopathy by size criteria. Vessels: Aorta and inferior vena cava are normal in size. PELVIS: Pelvic Organs: Unremarkable. Bladder: Moderate generalized bladder wall thickening is seen. Pelvic Nodes: No enlarged lymph nodes. Miscellaneous: No inguinal hernias are seen. Bones: No aggressive osseous abnormality. IMPRESSION: 4 mm obstructing stone within the distal right ureter, with associated right-sided hydroureter, hydronephrosis, and perinephric fat stranding. There is moderate generalized bladder wall thickening. Please correlate with bladder outlet obstruction. Nonobstructing left-sided kidney stones are seen. Additional findings: Fatty liver infiltration Diverticulosis, without active diverticulitis Dictated by: Sandeep Long M.D. on 06/10/2025 at 9:37 MDM Narrative Medical decision making narrative: Vital signs nurse triage note medication list previous ER visits in all imaging studies reviewed. CT scan showed 4 mm obstructing stone within the distal right ureter with associated right sided hydroureter hydronephrosis and perinephric fat stranding. There is moderate generalized bladder wall thickening. Nonobstructing left kidney stone or seen. WBC 9.8 hemoglobin 15.3 platelet 197 sodium 136 potassium 4.7 chloride 103 chloride CO2 22 BUN 24 creatinine 1.14 glucose 212 T bili 1.4 lipase 391. UA showed moderate uric acid crystals 10-38 HPF UR urine RBC +1 ketones +3 occult blood +1 urine glucose negative nitrite negative leukocyte esterase Patient given fluids Toradol Zofran Rocephin Flomax strainer. Patient will be discharged on [place] Flomax strainer and Macrobid and to follow up with urologist. Differential diagnosis kidney stone, kidney infection, diverticulitis, appendicitis, constipation, cholecystitis. Discharge Plan Departure Patient Disposition: Home Clinical Impression: Kidney stone Instructions: DI for Kidney Stones Activity Restrictions/Additional Instructions: Return with new or worsening symptoms. Take your medicines as directed. Follow up with Urology next week call office for appointment. Prescriptions: New hydrocodone-acetaminophen 5-325 mg tablet 1 tab PO Q4-6H PRN (Reason: pain) Qty: 20 0RF tamsulosin [Flomax] 0.4 mg capsule 0.4 mg PO DAILY Qty: 30 0RF nitrofurantoin monohyd/m-cryst [Macrobid] 100 mg capsule 100 mg PO Q12H 5 Days Qty: 10 0RF Rx Instructions: must administer with a meal/food No Action amoxicillin-pot clavulanate 875-125 mg tablet 1 tab PO BID Qty: 20 0RF (DME) glucometer See Rx Instructions .Route .MEDSUPPLY Qty: 1 0RF Rx Instructions: As directed (DME) lancing device See Rx Instructions .Route .MEDSUPPLY Qty: 1 0RF Rx Instructions: As directed amlodipine 5 mg tablet 5 mg PO DAILY Qty: 90 3RF Rx Instructions: Take 1 tab daily to keep blood pressure under 130/80 consistently. lisinopril 40 mg tablet 40 mg PO DAILY Qty: 90 3RF Rx Instructions: Take daily for hypertension simvastatin 10 mg tablet 10 mg PO BEDTIME Qty: 90 3RF Rx Instructions: Take 1 tab at bedtime daily for elevated cholesterol omega-3 acid ethyl esters [Lovaza] 1 gram capsule 1 cap PO BID Qty: 180 3RF Rx Instructions: Take 1 capsule twice daily for those elevated triglycerides. (DME) glucometer test strips See Rx Instructions .Route .MEDSUPPLY Qty: 100 11RF Rx Instructions: Test blood glucose fasting daily and as needed (DME) lancettes See Rx Instructions .Route .MEDSUPPLY Qty: 100 11RF Rx Instructions: Test fasting blood sugar daily and as needed Referrals: Jazzy Mcmillan ARNP [Primary Care Provider, Family Practice] Stand Alone Forms: Patient Portal/API
[2025-06-10 10:05] LABS: Add Manual Diff / Slide Review NO; Hematocrit 45.0 % (41-53); Hemoglobin 15.3 g/dL (13.5-17.5); Lymphocytes Absolute Auto 1800 /uL (1100-4500); Mean Corpuscular HGB Conc 34.0 % (30-36); Mean Corpuscular Hemoglobin 30.0 PG (26-34); Mean Corpuscular Volume 88.2 fL (80-100); Platelet Count 197 X10^3/uL (150-400)
[2025-06-10] MEDS: LACTATED RINGERS 1,000 ML 1000 ML IV (10:10)
[2025-06-10] MEDS: ONDANSETRON 4 MG/2 ML INJ IV (10:10)
[2025-06-10] MEDS: KETOROLAC 30 MG/ML VIAL 15 MG IV (10:10)
[2025-06-10 10:11] LABS: Alanine Aminotransferase 31 IU/L (<50); Albumin 4.9 g/dL (3.5-5.0); Albumin Globulin Ratio 1.3 (1.0-2.8); Alkaline Phosphatase 66 U/L (38-126); Blood Urea Nitrogen 24 mg/dL (9-20); Calcium 9.0 mg/dL (8.4-10.2); Carbon Dioxide 22 mmol/L (22-32); Chloride 103 mmol/L (98-107); Estimated Glomerular Filt Rate > 60 mL/min (>60); Globulin 3.9 g/dL (1.7-4.1); Glucose 212 mg/dL (70-99); HEMOLYSIS 30 (0-50); Lipase 391 U/L (23-300); Potassium 4.7 mmol/L (3.4-5.1); Sodium 136 mmol/L (137-145); Total Protein 8.8 g/dL (6.3-8.2)
[2025-06-10 11:35] LABS: Appearance Urine UA SL CLOUDY; Bilirubin Urine UA NEGATIVE (NEGATIVE); Color Urine UA YELLOW; Glucose Urine UA 1+ g/dL (Negative); Ketones Urine UA 1+ (NEGATIVE); Leukocyte Esterase Urine UA NEGATIVE (NEGATIVE); Nitrite Urine UA NEGATIVE (Negative); Occult Blood Urine UA 3+ (Negative); Protein Urine UA NEGATIVE (Negative); Specific Gravity Urine UA 1.025 (1.000-1.035); Urobilinogen Urine UA 0.2 E.U./dL (0.2); pH Urine UA 5.5 (4.5-8.0)
[2025-06-10] MEDS: TAMSULOSIN 0.4 MG CAPSULE PO (11:42)
[2025-06-10] MEDS: cefTRIAXone 2,000 MG in SODIUM CHLORIDE 0.9% 100 ML 200 MG IV (11:43)
[2025-06-10 11:47] LABS: Culture Indicated Urine Cult Not Indicated
[2025-06-10 12:29] VITALS: BP 178/94; PULSE 59; O2SAT 98
[2025-06-10 12:30] VITALS: PULSE 68; O2SAT 98
[2025-06-10 12:31] VITALS: BP 178/98; PULSE 75; RESP 16; O2SAT 97
== END 2025-06-10 12:33 | disposition home or self-care (01) ==
PROVIDERS: Emergency Provider Family Medicine; PCP Nurse Practitioner
DX: N20.0 Calculus of kidney (principal); Z87.442 Personal history of urinary calculi
CPT/HCPCS: 36415; 74177; 80053; 81001; 83690; 85025; 96361; 96365; 96375; 99284; J0696; J1885; J2405; Q9967

== ENCOUNTER → 2025-07-24 08:15 | Outpatient (CLI) | payer BC, SELFPAY ==
[2025-07-24 08:58] LABS: Add Manual Diff / Slide Review NO; Hematocrit 44.5 % (41-53); Hemoglobin 15.4 g/dL (13.5-17.5); Lymphocytes Absolute Auto 2700 /uL (1100-4500); Mean Corpuscular HGB Conc 34.5 % (30-36); Mean Corpuscular Hemoglobin 30.0 PG (26-34); Mean Corpuscular Volume 86.8 fL (80-100); Platelet Count 187 X10^3/uL (150-400)
[2025-07-24 09:04] LABS: Hemoglobin A1C% w Est Avg Glu 7.3 % (4.0-6.0)
[2025-07-24 09:25] LABS: Alanine Aminotransferase 35 IU/L (<50); Albumin 4.6 g/dL (3.5-5.0); Albumin Globulin Ratio 1.3 (1.0-2.8); Alkaline Phosphatase 62 U/L (38-126); Blood Urea Nitrogen 20 mg/dL (9-20); Calcium 9.3 mg/dL (8.4-10.2); Carbon Dioxide 22 mmol/L (22-32); Chloride 104 mmol/L (98-107); Cholesterol 224 mg/dL (140-199); Estimated Glomerular Filt Rate > 60 mL/min (>60); Globulin 3.6 g/dL (1.7-4.1); Glucose 222 mg/dL (70-99); HDL Cholesterol 36 mg/dL (40-60); HEMOLYSIS < 15 (0-50); Potassium 4.4 mmol/L (3.4-5.1); Sodium 139 mmol/L (137-145); Total Protein 8.2 g/dL (6.3-8.2); Triglycerides 149 mg/dL (35-150)
== END ==
PROVIDERS: PCP Family Medicine; Referring Provider Family Medicine; Visit Provider Family Medicine
DX: K76.0 Fatty (change of) liver, not elsewhere classified (principal); E11.9 Type 2 diabetes mellitus without complications; E78.1 Pure hyperglyceridemia; R73.09 Other abnormal glucose; R79.89 Other specified abnormal findings of blood chemistry; R77.8 Other specified abnormalities of plasma proteins
CPT/HCPCS: 36415; 80053; 80061; 83036; 85025